=== PATIENT | male | born 1985 | race Caucasian/White ===

== ENCOUNTER 2024-12-23 06:23 | Day surgery (SDC) | payer OTHER, SELFPAY | END 2024-12-23 14:28 | disposition home or self-care (01) | LOC: GI 06:23 | PROVIDERS: ATTENDING PHYSICIAN Internal Medicine Gastroenterology | DX: Z12.11 Encounter for screening for malignant neoplasm of colon (principal); K64.8 Other hemorrhoids; Z80.0 Family history of malignant neoplasm of digestive organs | CPT/HCPCS: G0121 ==